=== PATIENT | female | born 1990 | race Caucasian/White ===

== ENCOUNTER → 2016-10-28 | Outpatient (REF) | payer OTHER ==
[~2016-10-28] MED LIST: ACET50TA PO; IBUP80TA PO; ZANTTAB PO
== END ==
LOC: M LAB REF 13:12
PROVIDERS: ATTEND Specialist
DX: Z34.83 Encounter for supervision of other normal pregnancy, third trimester (principal); Z36 Encounter for antenatal screening of mother; Z3A.00 Weeks of gestation of pregnancy not specified

== ENCOUNTER 2016-11-20 22:12 | Inpatient (IN) | payer OTHER ==
[~2016-11-20] VITALS: Ht 172.7 cm; Wt 75.0 kg
[2016-11-20] MEDS ORDERED: LR 1,000 ML IV SCH (22:33)
[2016-11-20] MEDS ORDERED: LACTATED RINGER'S 1000 ML IV STA (22:33)
[2016-11-20] MEDS ORDERED: PENICILLIN G POTASSIUM IV 5 MU in D5W MINI-BAG PLUS 100 ML IV STA (22:33)
[2016-11-20 22:44] LABS: MEAN CORPUSCULAR HEMOGLOBIN 29.4 pg (27.0-33.0); MEAN CORPUSCULAR HGB CONC 32.9 g/dl (32.0-36.5); MEAN CORPUSCULAR VOLUME 89.3 fl (80.0-96.0); RED CELL DISTRIBUTION WIDTH 13.3 % (11.5-14.5); WHITE BLOOD COUNT 10.2 K/mm3 (4.0-10.0)
[2016-11-20] MEDS ORDERED: OXYTOCIN 30 UNITS IN 0.9% NaCl 500ML IV BAG (J2590) As Ordered ONE (23:54)
[2016-11-21] VITALS (7 sets, daily range): BP systolic 109–147; BP diastolic 59–71
[2016-11-21] MEDS ORDERED: OXYTOCIN DRIP 30 UNITS in APPROPRIATE DILUENT 1 EA IV SCH (00:39)
[2016-11-21] MEDS ORDERED: LR 1,000 ML IV SCH (00:39)
[2016-11-21] MEDS ORDERED: DOCUSATE SODIUM 100 MG CAP PO PRN (00:45)
[2016-11-21] MEDS ORDERED: ACETAMINOPHEN 500 MG TAB PO PRN (00:45)
[2016-11-21] MEDS ORDERED: MEASLES,MUMPS,RUBELLA VACCINE INJ (MMR-II) (90707) SC SCH (00:45)
[2016-11-21] MEDS ORDERED: ONDANSETRON 4MG/2ML VIAL (J2405) IV PRN (00:45)
[2016-11-21] MEDS ORDERED: RHOGAM 300 MCG (1500 IU) INJ (J2790) IM SCH (00:45)
[2016-11-21] MEDS ORDERED: PROMETHAZINE 25 MG TAB PO PRN (00:45)
[2016-11-21] MEDS ORDERED: IBUPROFEN 800 MG TAB PO PRN (00:45)
[2016-11-21] MEDS ORDERED: PENICILLIN G POTASSIUM IV 2.5 MU in D5W 100 ML IV SCH (03:00)
[2016-11-21] MEDS: PRENATAL VITAMIN TAB PO SCH (09:00)
[2016-11-22 06:15] VITALS: BP 116/71
[2016-11-22] MEDS: PRENATAL VITAMIN TAB PO SCH (08:41)
[2016-11-22 18:00] VITALS: BP 117/68
[2016-11-23 06:09] VITALS: BP 117/68
[2016-11-23 06:22] VITALS: BP 112/64
[2016-11-23] MEDS ORDERED: PRENTAB9 PO (07:10)
[2016-11-23] MEDS ORDERED: IBUP-1114 PO (07:10)
[2016-11-23] MEDS ORDERED: ACET50TA PO (07:10)
[2016-11-23] MEDS: PRENATAL VITAMIN TAB PO SCH (08:41)
== END 2016-11-23 09:30 | disposition home or self-care (01) | DRG 775 ==
LOC: M LDO 22:12 → M LDI 22:33 → M OBS 11-21 01:45
PROVIDERS: ADMIT Obstetrics & Gynecology; ATTEND Obstetrics & Gynecology
PROC: 10E0XZZ Delivery of Products of Conception, External Approach (ICD-10-PCS; principal; 2016-11-21)
DX: O48.0 Post-term pregnancy (principal); Z37.0 Single live birth; Z3A.40 40 weeks gestation of pregnancy; O99.824 Streptococcus B carrier state complicating childbirth

== ENCOUNTER → 2017-12-15 | Outpatient (REF) | payer OTHER | LOC: M LAB REF 18:45 | DX: Z01.411 Encounter for gynecological examination (general) (routine) with abnormal findings (principal); R87.5 Abnormal microbiological findings in specimens from female genital organs | CPT/HCPCS: G0123 ==